=== PATIENT | female | born 1955 | race Caucasian/White ===

== ENCOUNTER → 2016-08-19 | Outpatient (CLI) | payer MEDICAID | LOC: RAD 10:17 | PROVIDERS: ATTEND Physician Assistant | DX: L03.90 Cellulitis, unspecified (principal) | CPT/HCPCS: 78315; A9503; Q9969 ==

== ENCOUNTER → 2016-09-02 | Outpatient (CLI) | payer MEDICAID | LOC: RAD 07:28 | PROVIDERS: ATTEND Physician Assistant | DX: M79.672 Pain in left foot (principal) | CPT/HCPCS: 73720; A9576 ==

== ENCOUNTER → 2016-09-18 | Outpatient (CLI) | payer MEDICAID | LOC: WI 12:51 | PROVIDERS: ATTEND Physician Assistant | DX: N95.9 Unspecified menopausal and perimenopausal disorder (principal); M85.88 Other specified disorders of bone density and structure, other site | CPT/HCPCS: 77080 ==

== ENCOUNTER 2016-11-15 11:07 | Emergency (ER) | payer MEDICAID ==
[2016-11-15] MEDS ORDERED: MORPHINE SULFATE 10 MG/ML INJ IM ONE (11:20)
[2016-11-15] MEDS ORDERED: ONDANSETRON 4 MG TAB.RAPDIS PO ONE (11:20)
--- NOTE | 2016-11-15 11:20 | ER Document Report ---
ED Medical Screen (RME) - General Chief Complaint: Wrist Injury Stated Complaint: FALL/RIGHT WRIST INJURY TRAVEL OUTSIDE OF THE [place] IN LAST 30 DAYS: No - HPI Notes: 11/15/16 11:19 Right wrist deformity no loss of consciousness no tenderness of the elbow or shoulder - Related Data Allergies/Adverse Reactions: lisinopril [Lisinopril] Allergy (Intermediate, Verified 11/15/16 11:12) rash, hives Past Medical History - Past Medical History Cardiac Medical History: Reports: Hx Hypercholesterolemia, Hx Hypertension - MEDICATED Denies: Hx Coronary Artery Disease, Hx Heart Attack Pulmonary Medical History: Reports: Hx COPD Denies: Hx Asthma, Hx Bronchitis, Hx Pneumonia Neurological Medical History: Denies: Hx Cerebrovascular Accident, Hx Seizures Renal/ Medical History: Denies: Hx Peritoneal Dialysis GI Medical History: Denies: Hx Hepatitis, Hx Hiatal Hernia, Hx Ulcer Musculoskeltal Medical History: Reports Hx Arthritis Psychiatric Medical History: Reports: Hx Depression Traumatic Medical History: Reports: Hx Fractures Infectious Medical History: Denies: Hx Hepatitis Past Surgical History: Reports: Hx Section - x1, Hx Orthopedic Surgery - L hip replacement. Denies: Hx Hysterectomy, Hx Mastectomy, Hx Open Heart Surgery, Hx Pacemaker - Immunizations Hx Diphtheria, Pertussis, Tetanus Vaccination: No Review of Systems - Review of Systems Musculoskeletal: Other - Wrist deformity Physical Exam - Vital signs Vitals: Temp Pulse Resp BP Pulse Ox 98.4 F 90 18 139/73 H 97 11/15/16 11:11 11/15/16 11:11 11/15/16 11:11 11/15/16 11:11 11/15/16 11:11 - Extremities General upper extremity: Normal inspection - Deformity of the right wrist Course - Vital Signs Vital signs: Temp Pulse Resp BP Pulse Ox 98.4 F 90 18 139/73 H 97 11/15/16 11:11 11/15/16 11:11 11/15/16 11:11 11/15/16 11:11 11/15/16 11:11
--- NOTE | 2016-11-15 11:27 | ER Document Report ---
ED Hand/Wrist Injury - General Time seen by provider: 11:27 Mode of Arrival: Wheelchair Information source: Patient TRAVEL OUTSIDE OF THE [place] IN LAST 30 DAYS: No - HPI Injury to: Wrist - right Onset: Just prior to arrival - see HPI note Where: Outdoors - bench Severity: Moderate Context: Fall - General Chief Complaint: Wrist Injury Stated Complaint: FALL/RIGHT WRIST INJURY Notes: Patient is a 61 year old female presenting to the emergency department for right wrist deformity related to a recent fall. Patient injured her wrist just prior to arrival. Patient states that she was going to sit down on a bench and she missed and fell to her right side with her right arm outstretched to catch herself. Patient states she fell on concrete. Patient has an obvious deformity to her right wrist but is able to move all her fingers and has no pain to her elbow or shoulder. Patient denies any loss of consciousness. Patient got her rings off her hand except one on her right ring finger. Patient did not take any medications prior to arrival and drove herself to the emergency department; patient states she does have a ride home. Patient's orthopedic physicians is at [facility]. Patient has chronic back pain and states that she is out of her 10mg percocet. Patient is allergic to lisinopril. (MOUNIKA VILLAFUERTE) - Related Data Allergies/Adverse Reactions: lisinopril [Lisinopril] Allergy (Intermediate, Verified 11/15/16 11:12) rash, hives Past Medical History - General Information source: Patient - Social History Smoking Status: Former Smoker Family History: None Patient has suicidal ideation: No Patient has homicidal ideation: No - Past Medical History Cardiac Medical History: Reports: Hx Hypercholesterolemia, Hx Hypertension - MEDICATED Pulmonary Medical History: Reports: Hx COPD Musculoskeltal Medical History: Reports Hx Arthritis Psychiatric Medical History: Reports: Hx Depression Traumatic Medical History: Reports: Hx Fractures Past Surgical History: Reports: Hx Section - x1, Hx Orthopedic Surgery - L hip replacement - Immunizations Hx Diphtheria, Pertussis, Tetanus Vaccination: No Hx Pneumococcal Vaccination: 08/10/14 Review of Systems - Review of Systems Constitutional: No symptoms reported EENT: No symptoms reported Cardiovascular: No symptoms reported Respiratory: No symptoms reported Gastrointestinal: No symptoms reported Genitourinary: No symptoms reported Female Genitourinary: No symptoms reported Musculoskeletal: See HPI Skin: No symptoms reported Hematologic/Lymphatic: No symptoms reported Neurological/Psychological: No symptoms reported -: Yes All other systems reviewed and negative Physical Exam - Vital signs Interpretation: Normal - Vital signs Vitals: Temp Pulse Resp BP Pulse Ox 98.4 F 90 18 139/73 H 97 11/15/16 11:11 11/15/16 11:11 11/15/16 11:11 11/15/16 11:11 11/15/16 11:11 - Notes Notes: GENERAL: Well-appearing, well-nourished, mild distress. HEAD: Atraumatic, normocephalic. EYES: Pupils equal round and reactive to light, extraocular movements intact, sclera anicteric, conjunctiva are normal. ENT: Nares patent. Moist mucous membranes. Patent airway. NECK: Normal range of motion, supple without lymphadenopathy. LUNGS: Coarse breath sounds bilaterally. No wheezes, rales, or rhonchi. HEART: Regular rate and rhythm without murmurs. ABDOMEN: Soft, non-tender. No guarding, no rebound. No masses appreciated. EXTREMITIES: Right wrist has an obvious fracture of the distal ulna radius with tenderness, no tenderness with palpation to the right elbow or shoulder, able to move all fingers on the right hand. NEUROLOGICAL: No focal neurological deficits. Normal sensation. PSYCH: Normal affect. Normal mood. SKIN: Warm, Dry, normal turgor, no rashes or lesions noted. Capillary refill is < 2 seconds. (MOUNIKA VILLAFUERTE) Procedures - Immobilization Right Wrist Time completed: 12:20 Pre-Proc Neuro Vasc Exam: Normal Immobilizer type: Sugar tong Performed by: PCT Post-Proc Neuro Vasc Exam: Normal Alignment checked and good: Yes - Checked by provider at 12:25 Discharge - Discharge Clinical Impression: Colles' fracture of right radius, initial encounter for closed fracture, Ulna distal fracture Condition: Good Disposition: HOME, SELF-CARE Instructions: Fractured Radius and Ulna ([facility]) Prescriptions: Hydrocodone/Acetaminophen [[place] 10-325 mg Tablet] 1 tab PO Q6HP PRN #20 tablet PRN Reason: For Pain Referrals: [facility] [Provider Group] - Follow up in 3-5 days Scribe Documentation - Scribe Written by Scribe:: Mounika Villafuerte 11/15/16 11:55 acting as scribe for :: Bettina
[2016-11-15 12:34] VITALS: BP 140/83
== END 2016-11-15 12:34 | disposition home or self-care (01) ==
LOC: ER 11:07
PROC: 2W3CX1Z Immobilization of Right Lower Arm using Splint (ICD-10-PCS; principal; 2016-11-15)
DX: S52.531A Colles' fracture of right radius, initial encounter for closed fracture (principal); S52.601A Unspecified fracture of lower end of right ulna, initial encounter for closed fracture; W07.XXXA Fall from chair, initial encounter; Z87.891 Personal history of nicotine dependence
CPT/HCPCS: 99283; 96372; 73110; 29125; S0119; J2270

== ENCOUNTER → 2016-11-19 | Outpatient (CLI) | payer MEDICAID ==
[2016-11-19 13:59] LABS: ABSOLUTE EOSINOPHILS # (AUTO) 0.2 10^3/uL (0.0-0.6); ABSOLUTE LYMPHOCYTES (AUTO) 2.8 10^3/uL (0.5-4.7); ABSOLUTE MONOCYTES (AUTO) 0.9 10^3/uL (0.1-1.4); ABSOLUTE NEUT (AUTO) 5.8 10^3/uL (1.7-8.2); BASOPHILS % (AUTO) 0.2 % (0-2); EOSINOPHILS % (AUTO) 2.5 % (0-6); HEMATOCRIT 33.2 % (36.0-47.0); HEMOGLOBIN 11.5 g/dL (12.0-15.5); HGB HCT DIFFERENCE 1.3; LYMPHOCYTES % (AUTO) 28.5 % (13-45); MEAN CORPUSCULAR HEMOGLOBIN 32.7 pg (27.0-33.4); MEAN CORPUSCULAR HGB CONC 34.6 g/dL (32.0-36.0); MEAN CORPUSCULAR VOLUME 95 fl (80-97); MONOCYTES % (AUTO) 9.5 % (3-13); RED BLOOD COUNT 3.52 10^6/uL (3.72-5.28); RED CELL DISTRIBUTION WIDTH 14.7 % (11.5-14.0); SEGMENTED NEUTROPHILS % (AUTO) 59.3 % (42-78); WHITE BLOOD COUNT 9.8 10^3/uL (4.0-10.5)
[2016-11-19 14:16] LABS: ALANINE AMINOTRANSFERASE 23 U/L (9-52); ALBUMIN 3.7 g/dL (3.5-5.0); ALKALINE PHOSPHATASE 83 U/L (38-126); ANION GAP 10 (5-19); ASPARTATE AMINO TRANSFERASE 15 U/L (14-36); BILIRUBIN,DIRECT 0.3 mg/dL (0.0-0.4); BILIRUBIN,TOTAL 0.7 mg/dL (0.2-1.3); BLOOD UREA NITROGEN 12 mg/dL (7-20); CALCIUM 9.2 mg/dL (8.4-10.2); CARBON DIOXIDE 26 mmol/L (22-30); CHLORIDE 106 mmol/L (98-107); CREATININE RESULT 0.71 mg/dL (0.52-1.25); GLUCOSE 89 mg/dL (75-110); SODIUM 141.6 mmol/L (137-145); TOTAL PROTEIN 6.2 g/dL (6.3-8.2)
--- NOTE | 2016-11-19 14:19 | EKG REPORT ---
SEVERITY:- NORMAL ECG - SINUS RHYTHM : Confirmed by: Yovani Palacios MD 19-Nov-2016 14:17:43
== END ==
LOC: OD 12:54
PROVIDERS: ATTEND Orthopaedic Surgery
DX: Z11.2 Encounter for screening for other bacterial diseases (principal); I10 Essential (primary) hypertension
CPT/HCPCS: 36415; 80053; 85025; 87070; 93005; 93010

== ENCOUNTER → 2016-11-26 | Outpatient (CLI) | payer MEDICAID ==
[2016-12-01 10:37] LABS: HEPATITIS C QUANTITATION HCV Not Detected IU/mL (.)
== END ==
LOC: OD 14:25
PROVIDERS: ATTEND Orthopaedic Surgery
DX: B19.20 Unspecified viral hepatitis C without hepatic coma (principal)
CPT/HCPCS: 36415; 87522

== ENCOUNTER → 2017-02-18 | Outpatient (CLI) | payer MEDICAID ==
--- NOTE | 2017-02-18 16:42 | WOMENS IMAGING REPORT ---
EXAM DESCRIPTION: BILAT SCREENING MAMMO W/CAD COMPLETED DATE/TIME: 02/18/2017 2:57 pm REASON FOR STUDY: ROUTINE SCREENING; Z12.31 Z12.31 ENCNTR SCREEN MAMMOGRAM FOR MALIGNANT NEOPLASM O F TOSHIA COMPARISON: Multiple since 2009 TECHNIQUE: Standard craniocaudal and mediolateral oblique views of each breast recorded using [employer] acquisition. LIMITATIONS: None. FINDINGS: Findings present which are benign by mammographic criteria. No suspicious masses, calcifi cations or architectural distortion. Pertinent benign findings: Few scattered benign calcifications. Implanted left program planner devic e Read with the assistance of CAD. .[facility] - R2 Cenova Version 1.3 .[facility] Imaging - R2 Cenova Version 1.3 .[facility] Imaging - R2 Cenova Version 2.4 .[facility] [place] R2 Cenova Version 2.4 .[facility] - R2 Clay Press Operator Version 9.2 Benign mammographic findings may include one or more of the following: Smooth masses, popcorn/rim/co arse calcifications, asymmetries, post-procedure changes, and lesions with long-standing stability. IMPRESSION: BENIGN MAMMOGRAPHIC FINDINGS. BIRADS 2 BREAST DENSITY: c. The breasts are heterogeneously dense, which may obscure small masses. BIRAD: 2 BENIGN FINDING(S) RECOMMENDATION: ROUTINE SCREENING Please consider bilateral screening tomosynthesis in February 2018 given heterogeneously dense tissue COMMENT: The patient has been notified of the results by letter per SA requirements. Additional no tification policies are in place for contacting patient with suspicious or incomplete findings. Quality ID #[id number]: The [employer] recommends an annual screening mammogram for women aged 40 years or over. This facility utilizes a reminder system to ensure that all patients receive reminder letters, and/or direct phone calls for appointments. This includes reminders for routine scr eening mammograms, diagnostic mammograms, or other Breast Imaging Interventions when appropriate. Th is patient will be placed in the appropriate reminder system. The [employer] (ACR) has developed recommendations for screening MRI of the breast s in certain patient populations, to be used in conjunction with mammography. Breast MRI surveillanc e may be appropriate for women with more than 20% lifetime risk of developing breast cancer as deter mined by genetic testing, significant family history of the disease, or history of mantle radiation f or Hodgkins Disease. ACR Practice Guidelines 2008. TECHNICAL DOCUMENTATION: FINDING NUMBER: (1) ASSESSMENT: (1) JOB ID: [id number] [employer]- All Rights Reserved
== END ==
LOC: WI 11:35
PROVIDERS: ATTEND Family Medicine
DX: Z12.31 Encounter for screening mammogram for malignant neoplasm of breast (principal)
CPT/HCPCS: 77067; G0202

== ENCOUNTER → 2017-05-11 | Outpatient (CLI) | payer MEDICAID ==
--- NOTE | 2017-05-11 10:42 | RADIOLOGY REPORT (SQ) ---
EXAM DESCRIPTION: MRI THORACIC SPINE WITHOUT COMPLETED DATE/TIME: 05/11/2017 10:18 am REASON FOR STUDY: WEDGE COMPRESSION FX OF UNSPEC THORACIC VERTEBRA (S22.000A) S22.000A WEDGE COMPR ESSION FRACTURE OF UNSP THORACIC VERTEBR COMPARISON: None. TECHNIQUE: Sagittal and Axial imaging includes T1, T2, STIR and gradient echo sequences. LIMITATIONS: Motion. FINDINGS: LOCALIZER: No worrisome findings. ALIGNMENT: Normal. VERTEBRAE: Depression of the superior endplates of T11 and T12 with approximately 50% height loss at T12 and 40% at T11. Minimal retropulsion. BONE MARROW: Increased T2 signal associated with superior endplates of T11 and T12. Edema extends in to the left T11 pedicle. HARDWARE: None in the spine. CORD: Normal in size and signal intensity. SOFT TISSUES: No soft tissue masses. THORACIC DISCS T1-T12: Mild spinal stenosis associated with disc bulge and retropulsion T10-11. LOWER CERVICAL: Incompletely imaged. No significant spinal stenosis UPPER LUMBAR: Incompletely imaged. No significant spinal stenosis OTHER: No other significant finding. IMPRESSION: Recent compression fractures superior endplate T11 and T12. TECHNICAL DOCUMENTATION: JOB ID: [id number] [employer]- All Rights Reserved
== END ==
LOC: RAD 09:25
PROVIDERS: ATTEND Physician Assistant
DX: S22.000A Wedge compression fracture of unspecified thoracic vertebra, initial encounter for closed fracture (principal); X58.XXXA Exposure to other specified factors, initial encounter; Y93.9 Activity, unspecified; Y92.9 Unspecified place or not applicable; Y99.9 Unspecified external cause status
CPT/HCPCS: 72146

== ENCOUNTER → 2017-05-25 | Outpatient (CLI) | payer MEDICAID ==
--- NOTE | 2017-05-25 12:24 | WOMENS IMAGING REPORT ---
EXAM DESCRIPTION: BONE DENSITY HIP/SPINE COMPLETED DATE/TIME: 05/25/2017 9:06 am REASON FOR STUDY: UNSPECIFIED MENOPAUSAL N95.9 N95.9 UNSPECIFIED MENOPAUSAL AND PERIMENOPAUSAL DISO RDER COMPARISON: 09/18/2016 02/18/2016 TECHNIQUE: Dual-Energy X-ray Absorptiometry (DEXA) of the AP Spine and Hip. LIMITATIONS: None. FINDINGS: LUMBAR SPINE: The bone mineral density (BMD) measured from L1-L4 in the AP projection correlates with a T-score of -1.0, which is osteopenia as defined by the World Health Organization. HIP: The bone mineral density (BMD) measured in the left hip correlates with a T-score of -3.6 in the femo ral neck, which is osteoporosis as defined by the World Health Organization. IMPRESSION: 1. LUMBAR SPINE: OSTEOPENIA. 2. HIP: OSTEOPOROSIS. COMMENT: The World Health Organization defines low BMD as follows: T-score: Normal: Greater than -1.0 Osteopenia: Between -1.0 and -2.5 Osteoporosis: Less than -2.5 without fractures Established osteoporosis: Less than -2.5 with fractures In general, you may wish to consider: Diagnosis Treatment Follow-up DEXA Normal BMD Prevention 2-3 years Osteopenia Prevention/Therapy 1-2 years Osteoporosis Therapy Yearly TECHNICAL DOCUMENTATION: JOB ID: [id number]- All Rights Reserved
== END ==
LOC: WI 08:30
PROVIDERS: ATTEND Physician Assistant
DX: N95.9 Unspecified menopausal and perimenopausal disorder (principal); M81.8 Other osteoporosis without current pathological fracture
CPT/HCPCS: 77080

== ENCOUNTER → 2017-06-22 | Outpatient (CLI) | payer MEDICAID ==
--- NOTE | 2017-06-22 13:12 | RADIOLOGY REPORT (SQ) ---
EXAM DESCRIPTION: MRI LUMBAR SPINE WITHOUT COMPLETED DATE/TIME: 06/22/2017 11:04 am REASON FOR STUDY: OTHER INTERVERTEBRAL DISC DEGENERATION, LUMBAR REGION (M51.36) M51.36 OTHER INTER VERTEBRAL DISC DEGENERATION, LUMBAR REGION COMPARISON: 03/14/2015 TECHNIQUE: Sagittal and Axial imaging includes T1, T2, STIR and gradient echo sequences. Coronal T2/ HASTE imaging. LIMITATIONS: None. FINDINGS: VISUALIZED UPPER ABDOMEN: Limited evaluation. No acute or suspicious findings suggested. SEGMENTATION: No transitional anatomy. The lowest well-developed disc space is labeled L5-S1. ALIGNMENT: Mild scoliosis. VERTEBRAE: Intact. See recent MRI thoracic spine report for findings in the thoracic spine. BONE MARROW: Normal. No marrow replacement or reactive changes. DISC SIGNAL: Desiccation multiple levels. POSTERIOR ELEMENTS: Intact. HARDWARE: None in the spine. CORD AND CONUS: Normal in size and signal intensity. Conus at the appropriate level. SOFT TISSUES: No aortic aneurysm seen. No bulky retroperitoneal adenopathy or mass. No paraspinal mas s or fluid. L1-L2: No significant spinal stenosis or exit foraminal stenosis. L2-L3: Flattening of the ventral margin of thecal sac due to disc bulge. L3-L4: Lateral recess stenosis and mild -moderate spinal stenosis due to disc osteophyte complex and facet arthropathy. L4-L5: Disc bulge and facet arthropathy. Mild narrowing of the left neural foramen. L5-S1: Disc bulge and facet arthropathy. Mild neural foraminal narrowing, right greater than left. LOWER THORACIC: See recent MRI thoracic spine report for findings in the thoracic spine. SACRUM: Visualized upper sacrum intact. OTHER: No other significant findings. IMPRESSION: Spondylosis and facet arthropathy. Lateral recess stenosis and mild -moderate spinal st enosis L3-4. No significant change. TECHNICAL DOCUMENTATION: JOB ID: [id number] [employer]- All Rights Reserved
== END ==
LOC: RAD 09:56
PROVIDERS: ATTEND Physician Assistant
DX: M51.36 Other intervertebral disc degeneration, lumbar region (principal)
CPT/HCPCS: 72148

== ENCOUNTER → 2017-09-17 | Outpatient (CLI) | payer MEDICAID ==
[2017-09-17 13:03] LABS: ABSOLUTE BASOPHILS # (AUTO) 0.1 10^3/uL (0.0-0.2); ABSOLUTE EOSINOPHILS # (AUTO) 0.3 10^3/uL (0.0-0.6); ABSOLUTE LYMPHOCYTES (AUTO) 3.1 10^3/uL (0.5-4.7); ABSOLUTE MONOCYTES (AUTO) 0.7 10^3/uL (0.1-1.4); ABSOLUTE NEUT (AUTO) 4.7 10^3/uL (1.7-8.2); BASOPHILS % (AUTO) 0.6 % (0-2); EOSINOPHILS % (AUTO) 3.4 % (0-6); HEMATOCRIT 39.2 % (36.0-47.0); LYMPHOCYTES % (AUTO) 35.2 % (13-45); MEAN CORPUSCULAR HEMOGLOBIN 31.4 pg (27.0-33.4); MEAN CORPUSCULAR HGB CONC 33.3 g/dL (32.0-36.0); MEAN CORPUSCULAR VOLUME 94 fl (80-97); MONOCYTES % (AUTO) 8.2 % (3-13); PLATELET COUNT 197 10^3/uL (150-450); RED BLOOD COUNT 4.15 10^6/uL (3.72-5.28); RED CELL DISTRIBUTION WIDTH 14.7 % (11.5-14.0); SEGMENTED NEUTROPHILS % (AUTO) 52.6 % (42-78); TOTAL CELLS COUNTED % (AUTO) 100 %; WHITE BLOOD COUNT 8.9 10^3/uL (4.0-10.5)
[2017-09-17 13:35] LABS: ALANINE AMINOTRANSFERASE 50 U/L (9-52); ALKALINE PHOSPHATASE 76 U/L (38-126); ANION GAP 9 (5-19); ASPARTATE AMINO TRANSFERASE 24 U/L (14-36); BILIRUBIN,DIRECT 0.5 mg/dL (0.0-0.4); BILIRUBIN,TOTAL 0.7 mg/dL (0.2-1.3); BLOOD UREA NITROGEN 13 mg/dL (7-20); CALCIUM 10.7 mg/dL (8.4-10.2); CARBON DIOXIDE 28 mmol/L (22-30); CHLORIDE 103 mmol/L (98-107); GLUCOSE 78 mg/dL (75-110); POTASSIUM 4.2 mmol/L (3.6-5.0); SODIUM 139.6 mmol/L (137-145); TOTAL PROTEIN 6.7 g/dL (6.3-8.2)
== END ==
LOC: OD 11:46
PROVIDERS: ATTEND Physician Assistant
DX: Z11.2 Encounter for screening for other bacterial diseases (principal); I10 Essential (primary) hypertension
CPT/HCPCS: 36415; 80053; 85025; 87070

== ENCOUNTER → 2018-06-17 | Outpatient (CLI) | payer MEDICAID ==
--- NOTE | 2018-06-17 18:53 | WOMENS IMAGING REPORT ---
EXAM DESCRIPTION: BILAT SCREENING MAMMO W/CAD COMPLETED DATE/TIME: 06/17/2018 2:58 pm REASON FOR STUDY: BILATERAL SCREENING MAMMO /Z12.31 Z12.31 ENCNTR SCREEN MAMMOGRAM FOR MALIGNANT NE OPLASM OF TOSHIA COMPARISON: Multiple since 2009 TECHNIQUE: Standard craniocaudal and mediolateral oblique views of each breast recorded using [employer] l acquisition. LIMITATIONS: None. FINDINGS: Findings present which are benign by mammographic criteria. No suspicious masses, calcifi cations or architectural distortion. Pertinent benign findings: Benign bilateral breast parenchymal and skin calcifications. Implanted ca rdiac monitoring device over the medial left breast. Read with the assistance of CAD. .[facility] - R2 Cenova Version 1.3 .[facility] Imaging - R2 Cenova Version 1.3 .[facility] Imaging - R2 Cenova Version 2.4 .[facility] - R2 Cenova Version 2.4 .[facility] - R2 Call Out Operator Version 9.2 Benign mammographic findings may include one or more of the following: Smooth masses, popcorn/rim/co arse calcifications, asymmetries, post-procedure changes, and lesions with long-standing stability. IMPRESSION: BENIGN MAMMOGRAPHIC FINDINGS. BIRADS 2 BREAST DENSITY: c. The breasts are heterogeneously dense, which may obscure small masses. BIRAD: 2 BENIGN FINDING(S) RECOMMENDATION: ROUTINE SCREENING Please continue yearly bilateral screening mammography/tomosynthesis in June 2019 COMMENT: The patient has been notified of the results by letter per MQSA requirements. Additional no tification policies are in place for contacting patient with suspicious or incomplete findings. Quality ID #[id number]: The [employer] recommends an annual screening mammogram for women aged 40 years or over. This facility utilizes a reminder system to ensure that all patients receive reminder letters, and/or direct phone calls for appointments. This includes reminders for routine scr eening mammograms, diagnostic mammograms, or other Breast Imaging Interventions when appropriate. Th is patient will be placed in the appropriate reminder system. The [employer] (ACR) has developed recommendations for screening MRI of the breast s in certain patient populations, to be used in conjunction with mammography. Breast MRI surveillanc e may be appropriate for women with more than 20% lifetime risk of developing breast cancer as deter mined by genetic testing, significant family history of the disease, or history of mantle radiation f or Hodgkins Disease. ACR Practice Guidelines 2008. TECHNICAL DOCUMENTATION: FINDING NUMBER: (1) ASSESSMENT: (1) JOB ID: [id number] [employer]- All Rights Reserved Reading location - IP/workstation name: [facility]-2
== END ==
LOC: WI 14:41
PROVIDERS: ATTEND Family Medicine
DX: Z12.31 Encounter for screening mammogram for malignant neoplasm of breast (principal)
CPT/HCPCS: 77067

== ENCOUNTER 2018-08-12 10:58 | Emergency (ER) | payer MEDICAID ==
[2018-08-12] MEDS ORDERED: HYDROMORPHONE HCL INJ/PF 2 MG/ML AMPULE IV ONE (11:14)
[2018-08-12] MEDS ORDERED: ONDANSETRON HCL INJ/PF 4 MG/2 ML SDV IV ONE (11:14)
[2018-08-12 11:48] LABS: ABSOLUTE BASOPHILS # (AUTO) 0.1 10^3/uL (0.0-0.2); ABSOLUTE EOSINOPHILS # (AUTO) 0.1 10^3/uL (0.0-0.6); ABSOLUTE LYMPHOCYTES (AUTO) 1.9 10^3/uL (0.5-4.7); ABSOLUTE MONOCYTES (AUTO) 0.8 10^3/uL (0.1-1.4); ABSOLUTE NEUT (AUTO) 9.1 10^3/uL (1.7-8.2); BASOPHILS % (AUTO) 0.5 % (0-2); EOSINOPHILS % (AUTO) 0.8 % (0-6); HEMOGLOBIN 12.1 g/dL (12.0-15.5); MEAN CORPUSCULAR HEMOGLOBIN 31.3 pg (27.0-33.4); MEAN CORPUSCULAR HGB CONC 33.7 g/dL (32.0-36.0); MEAN CORPUSCULAR VOLUME 93 fl (80-97); MONOCYTES % (AUTO) 6.7 % (3-13); PLATELET COUNT 255 10^3/uL (150-450); RED BLOOD COUNT 3.87 10^6/uL (3.72-5.28); RED CELL DISTRIBUTION WIDTH 14.4 % (11.5-14.0); TOTAL CELLS COUNTED % (AUTO) 100 %; WHITE BLOOD COUNT 11.9 10^3/uL (4.0-10.5)
[2018-08-12 12:07] LABS: ALANINE AMINOTRANSFERASE 20 U/L (9-52); ALBUMIN 3.6 g/dL (3.5-5.0); ALKALINE PHOSPHATASE 92 U/L (38-126); ANION GAP 7 (5-19); ASPARTATE AMINO TRANSFERASE 20 U/L (14-36); BILIRUBIN,DIRECT 0.2 mg/dL (0.0-0.4); BILIRUBIN,TOTAL 0.5 mg/dL (0.2-1.3); BLOOD UREA NITROGEN 12 mg/dL (7-20); CALCIUM 9.3 mg/dL (8.4-10.2); CARBON DIOXIDE 24 mmol/L (22-30); CHLORIDE 107 mmol/L (98-107); GLUCOSE 87 mg/dL (75-110); POTASSIUM 4.4 mmol/L (3.6-5.0); TOTAL PROTEIN 6.2 g/dL (6.3-8.2)
--- NOTE | 2018-08-12 12:11 | RADIOLOGY REPORT (SQ) ---
EXAM DESCRIPTION: TOE LEFT COMPLETED DATE/TIME: 08/12/2018 12:00 pm REASON FOR STUDY: left great toe pain, injury COMPARISON: None. NUMBER OF VIEWS: Two views. TECHNIQUE: AP and lateral images acquired of the left first toe. LIMITATIONS: None. FINDINGS: MINERALIZATION: Osteopenic BONES: Acute spiral nondisplaced fracture left great toe proximal phalanx mid diaphysis. This is mar ked with arrows. JOINTS: No effusions. SOFT TISSUES: Medial forefoot soft tissue swelling. No foreign body. OTHER: No other significant finding. IMPRESSION: Acute spiral nondisplaced fracture left great toe proximal phalanx mid diaphysis. COMMENT: SITE OF TRAUMA/COMPLAINT MARKED/STAMP COMPLETED: YES. TECHNICAL DOCUMENTATION: JOB ID: [id number] [employer]- All Rights Reserved Reading location - IP/workstation name: [email or web address]
--- NOTE | 2018-08-12 12:12 | RADIOLOGY REPORT (SQ) ---
EXAM DESCRIPTION: CHEST SINGLE VIEW COMPLETED DATE/TIME: 08/12/2018 12:00 pm REASON FOR STUDY: hip injury, pre-op COMPARISON: Chest films 03/30/2013, 05/28/2011 EXAM PARAMETERS: NUMBER OF VIEWS: One view. TECHNIQUE: Single frontal radiographic view of the chest acquired. RADIATION DOSE: NA LIMITATIONS: None. FINDINGS: LUNGS AND PLEURA: No opacities, masses or pneumothorax. No pleural effusion. MEDIASTINUM AND HILAR STRUCTURES: No masses. Contour normal. HEART AND VASCULAR STRUCTURES: Heart normal in size. Normal vasculature. BONES: Old healed bilateral rib fractures HARDWARE: None in the chest. OTHER: No other significant finding. IMPRESSION: NO ACUTE RADIOGRAPHIC FINDING IN THE CHEST. TECHNICAL DOCUMENTATION: JOB ID: [id number] [employer]- All Rights Reserved Reading location - IP/workstation name: [email or web address]
--- NOTE | 2018-08-12 12:18 | RADIOLOGY REPORT (SQ) ---
EXAM DESCRIPTION: HIP LEFT AP/LATERAL COMPLETED DATE/TIME: 08/12/2018 12:00 pm REASON FOR STUDY: left hip pain, injury COMPARISON: Left hip films 01/13/2014, 04/01/2013 NUMBER OF VIEWS: Two views. TECHNIQUE: AP pelvis and additional frog-leg view of the left hip. LIMITATIONS: None. FINDINGS: MINERALIZATION: Osteoporotic LEFT HIP: Old left total hip replacement. Question superimposed acute fracture over the greater troc hanter. Consider CT for followup. RIGHT HIP: No fracture or dislocation. No worrisome bone lesions. PUBIS AND ISCHIUM: No fracture. PELVIS: No fracture. SACRUM: No fracture or dislocation. No worrisome bone lesions. SOFT TISSUES: No findings. OTHER: No other significant finding. IMPRESSION: Old left total hip replacement. Question superimposed acute fracture over the left hip greater trochanter. Consider CT for followup TECHNICAL DOCUMENTATION: JOB ID: [id number] [employer]- All Rights Reserved Reading location - IP/workstation name: [email or web address]
--- NOTE | 2018-08-12 12:22 | ER Document Report ---
ED General - General Chief Complaint: Fall Injury Stated Complaint: HIP PAIN Time Seen by Provider: 08/12/18 11:06 Notes: Patient is a 63-year-old female with history of hip fracture on the left that presents to the emergency department for chief complaint of fall and left hip pain. Patient states that she was walking last night to go to the bathroom, and tripped, and fell, landed on her left side, she also injured her left great toe from this, she was able to crawl to get herself back into bed, but has not been up to move, she eventually called EMS to bring himself to the emergency department. She currently rates her pain as a 10 out of 10, described as a constant, throbbing pain she did receive 100 mcg of fentanyl by EMS and 1 mg of IV Dilaudid. She currently denies having any associated numbness, weakness or tingling that is new. She states she chronically has decreased sensation to her left foot from a prior surgical adverse outcome. On that hip she does have a total hip arthroplasty, with cerclage wires. Past Medical History: Osteoarthritis, hypertension, hyperlipidemia, anxiety, depression Past Surgical History: Left partial hip arthroplasty, then switched and converted to left total hip arthroplasty, ORIF of the left femur. Social History: Positive for smoking cigarettes, denies alcohol or drug use. Family History: Reviewed and noncontributory for presenting illness Allergies: Reviewed, see documented allergy list. REVIEW OF SYSTEMS: Other than noted above, the 12 point review of systems was reviewed with the patient and were negative, all pertinent findings are included in the HPI. PHYSICAL EXAMINATION: Vital signs reviewed, nursing noted reviewed. GENERAL: Patient appears uncomfortable, and in pain HEAD: Atraumatic, normocephalic. EYES: Eyes appear normal, extraocular movements intact, sclera anicteric, conjunctiva are normal. ENT: nares patent, oropharynx clear without exudates. Moist mucous membranes. NECK: Normal range of motion, supple without lymphadenopathy, no midline tenderness LUNGS: Breath sounds clear to auscultation bilaterally and equal. No wheezes rales or rhonchi. HEART: Regular rate and rhythm without murmurs ABDOMEN: Soft, nontender, normoactive bowel sounds. No rebound, guarding, or rigidity. No masses appreciated. EXTREMITIES: Pain with hip flexion on the left, tenderness to palpation over the left greater trochanter, no ecchymosis noted over the lateral hip, pelvis is stable, there is pain with flexion of the hip on the left, and positive logrolling on the left, negative on the right. No leg shortening or obvious deformity noted. The left great toe was ecchymotic, and nontender, however the patient has a history of dropfoot and paralysis to that foot, and does not have sensation. Cap refill is less than 3 seconds in all toes, no other gross deformities or injuries noted. NEUROLOGICAL: Chronic drop foot on the left, with lack of sensation distal to the ankle, chronic for this patient and unchanged, no new focal neurological deficits. Moves all extremities spontaneously Motor and sensory grossly intact on exam. PSYCH: Normal mood, normal affect. SKIN: Warm, Dry, normal turgor, no rashes or lesions noted on exposed skin TRAVEL OUTSIDE OF THE [place] IN LAST 30 DAYS: No - Related Data Allergies/Adverse Reactions: lisinopril [Lisinopril] Allergy (Intermediate, Verified 11/15/16 11:12) rash, hives Past Medical History - Social History Smoking Status: Former Smoker Frequency of alcohol use: None Drug Abuse: None Family History: None, Reviewed & Not Pertinent Patient has suicidal ideation: No Patient has homicidal ideation: No - Past Medical History Cardiac Medical History: Reports: Hx Hypercholesterolemia, Hx Hypertension - [place] DICATED Denies: Hx Coronary Artery Disease, Hx Heart Attack Pulmonary Medical History: Reports: Hx COPD Denies: Hx Asthma, Hx Bronchitis, Hx Pneumonia Neurological Medical History: Denies: Hx Cerebrovascular Accident, Hx Seizures Renal/ Medical History: Denies: Hx Peritoneal Dialysis GI Medical History: Denies: Hx Hepatitis, Hx Hiatal Hernia, Hx Ulcer Musculoskeletal Medical History: Reports Hx Arthritis Psychiatric Medical History: Reports: Hx Depression Traumatic Medical History: Reports: Hx Fractures Infectious Medical History: Denies: Hx Hepatitis Past Surgical History: Reports: Hx Section - x1, Hx Orthopedic Surgery - L hip replacement. Denies: Hx Hysterectomy, Hx Mastectomy, Hx Open Heart Surgery, Hx Pacemaker - Immunizations Hx Diphtheria, Pertussis, Tetanus Vaccination: No Hx Pneumococcal Vaccination: 08/10/14 Physical Exam - Vital signs Vitals: Resp BP Pulse Ox 14 127/100 H 95 08/12/18 11:07 08/12/18 11:07 08/12/18 11:07 Course - Re-evaluation Re-evalutation: Patient seen and examined vital signs reviewed. Laboratory data and imaging were ordered as appropriate for the patient's presenting symptoms and complaint, with consideration of any critical or life threatening conditions that may be associated with their obtained history and exam as noted above. Patient was treated with IV fentanyl, and IV Dilaudid by EMS, however patient was still having pain upon my assessment, patient was given additional 1 mg of I V Dilaudid, which did seem to improve her pain for some period of time. X-rays were ordered of the hip and her toe, these x-rays demonstrated an acute fracture of the greater trochanter of the left hip, without disruption of the patient's intact left total hip arthroplasty, also noted was a spiral fracture of the left first proximal phalanx of the great toe, that is nondisplaced. Blood work was obtained for the patient, presuming possible hip fracture as well, and was unremarkable,, with the exception of a mild leukocytosis, likely is secondary to acute distress reactant from her injuries. Patient was given 10 mg of oxycodone IR, to help with her pain and she was still having some on my r eevaluation. I explained the patient the results, and that these injuries do not require immediate surgery, she was placed in a postop shoe for her toe fracture, and advised partial weightbearing on the left leg, with a walker. I did place a call to the orthopedic surgeon, twice, did not get response, however I am rather familiar with these fractures, and as it is a nonweightbearing injury to the greater trochanter, and her toe fracture is nondisplaced, and not immediate operation needed, and she had cap refill distally, I felt the patient can be discharged home which she is agreeable to. She states she already has oxycodone at home from previous prescriptions, has plenty of that I advised that she could take an extra oxycodone if needed, given that she has acute injuries that would warrant additional pain medication in someone that takes chronic opiates. Patient was agreeable, she will follow-up with her primary care, she does have an orthopedic group that she follows with, and states that she will call them as well. Evaluation was most consistent with fall, resulting in left greater trochanteric fracture, and left great toe fracture as well. Results were discussed with the patient at this point, after careful consideration I feel that that patient can be discharged from the emergency department, the patient was educated treatments and reasons to return to the emergency department based on their presumed diagnosis as noted above, they were advised to followup with a primary care physician in 2-3 days. Patient was agreeable to plan of care. *Note is created using voice recognition software and may contain spelling, syntax or grammatical errors. Laboratory 08/12/18 08/12/18 11:30 11:30 WBC 11.9 H RBC 3.87 Hgb 12.1 Hct 36.0 MCV 93 MCH 31.3 MCHC 33.7 RDW 14.4 H Plt Count 255 Seg Neutrophils % 76.0 Lymphocytes % 16.0 Monocytes % 6.7 Eosinophils % 0.8 Basophils % 0.5 Absolute Neutrophils 9.1 H Absolute Lymphocytes 1.9 Absolute Monocytes 0.8 Absolute Eosinophils 0.1 Absolute Basophils 0.1 Sodium 138.0 Potassium 4.4 Chloride 107 Carbon Dioxide 24 Anion Gap 7 BUN 12 Creatinine 0.70 Est GFR ( Amer) > 60 Est GFR (Non-Af Amer) > 60 Glucose 87 Calcium 9.3 Total Bilirubin 0.5 Direct Bilirubin 0.2 Neonat Total Bilirubin Not Reportable Neonat Direct Bilirubin Not Reportable Neonat Indirect Bili Not Reportable AST 20 ALT 20 Alkaline Phosphatase 92 Total Protein 6.2 L Albumin 3.6 Hip X-Ray 08/12/18 11:14 IMPRESSION: Old left total hip replacement. Question superimposed acute fracture over the left hip greater trochanter. Consider CT for followup Toe X-Ray 08/12/18 11:14 IMPRESSION: Acute spiral nondisplaced fracture left great toe proximal phalanx mid diaphysis. Chest X-Ray 08/12/18 11:15 IMPRESSION: NO ACUTE RADIOGRAPHIC FINDING IN THE CHEST. - Vital Signs Vital signs: Temp Pulse Resp BP Pulse Ox 17 110/66 94 08/12/18 14:01 08/12/18 14:01 08/12/18 14:01 - Laboratory Result Diagrams: 08/12/18 11:30 08/12/18 11:30 Laboratory results interpreted by me: 08/12/18 08/12/18 11:30 11:30 WBC 11.9 H RDW 14.4 H Absolute Neutrophils 9.1 H Total Protein 6.2 L Procedures - Immobilization Left Foot Pre-Proc Neuro Vasc Exam: Normal Immobilizer type: Post-op shoe Performed by: RN Post-Proc Neuro Vasc Exam: Normal Discharge - Discharge Clinical Impression: Fracture of greater trochanter of left femur Qualifiers: Encounter type: initial encounter Fracture type: closed Fracture alignment: no ndisplaced Qualified Code(s): S72.115A - Nondisplaced fracture of greater t rochanter of left femur, initial encounter for closed fracture Toe fracture, left Qualifiers: Encounter type: initial encounter Toe: great toe Fracture type: closed Phalanx: proximal Fracture alignment: nondisplaced Qualified Code(s): S92.415A - Nondisplaced fracture of proximal phalanx of left great toe, initial encounter for closed fracture Fall Qualifiers: Encounter type: initial encounter Qualified Code(s): W19.XXXA - Unspecified fall, initial encounter Condition: Stable Disposition: HOME, SELF-CARE Instructions: Fractured Toe ([facility]) Additional Instructions: Please follow-up with your orthopedic surgeon, call for an appointment, if you have worsening pain or uncontrolled pain, do not hesitate to return to the emergency department please use the walker that she have at home, to avoid further falls or further injury. Please take the oxycodone that you had previously prescribed from your primary care physician, you can take these 3 times a day, you can have 2 pills at a time if needed if your pain is worse or have breakthrough pain. Referrals: KAILA RODRIGUEZ DO [Primary Care Provider] - Follow up in 3-5 days [facility] [Provider Group] - Follow up in 3-5 days (call for appointment)
--- NOTE | 2018-08-12 13:40 | EKG REPORT ---
SEVERITY:- OTHERWISE NORMAL ECG - SINUS RHYTHM BORDERLINE LEFT AXIS DEVIATION : Confirmed by: Shanda Quezada MD 12-Aug-2018 13:39:41
[2018-08-12] MEDS ORDERED: OXYCODONE HCL IR 5 MG TABLET PO ONE (13:53)
[2018-08-12 14:17] VITALS: BP 110/66
== END 2018-08-12 15:06 | disposition home or self-care (01) ==
LOC: ER 10:58
DX: S72.115A Nondisplaced fracture of greater trochanter of left femur, initial encounter for closed fracture (principal); S92.415A Nondisplaced fracture of proximal phalanx of left great toe, initial encounter for closed fracture; M25.552 Pain in left hip; W01.0XXA Fall on same level from slipping, tripping and stumbling without subsequent striking against object, initial encounter; Y92.009 Unspecified place in unspecified non-institutional (private) residence as the place of occurrence of the external cause; I10 Essential (primary) hypertension; E78.5 Hyperlipidemia, unspecified; F41.9 Anxiety disorder, unspecified; Z96.642 Presence of left artificial hip joint; F17.210 Nicotine dependence, cigarettes, uncomplicated
CPT/HCPCS: 93005; 99284; 96374; 96375; 36415; 85025; 80053; 71045; 73502; 73660; 93010; J1170; J2405; J3490

== ENCOUNTER → 2019-01-19 | Outpatient (CLI) | payer MEDICAID ==
--- NOTE | 2019-01-19 13:50 | RADIOLOGY REPORT (SQ) ---
EXAM DESCRIPTION: CT LT UPPER EXTREMITY WITHOUT COMPLETED DATE/TIME: 01/19/2019 1:13 pm REASON FOR STUDY: S62.102P FX UNSP CARPAL BONE, LEFT WRIST, SUBS FOR FX W MALUNION S62.102P FX UNSP CARPAL BONE, LEFT WRIST, SUBS FOR FX W CÉSAR COMPARISON: None. TECHNIQUE: Axial imaging performed through the left wrist with reformatted coronal and sagittal imag ing windowed for bone and soft tissues. Images saved to PACS. 3D IMAGING: Were 3D images as MIP, SSD, or volume rendering performed at the work station? Yes. All CT scanners at this facility use dose modulation, iterative reconstruction, and/or weight based d osing when appropriate to reduce radiation dose to as low as reasonably achievable (ALARA). [facility]: Dose Right [facility]: CareDose [facility]: Dose Right [facility]: Teradose 4D [facility]: [employer] LIMITATIONS: None. RADIATION DOSE: CT Rad equipment meets quality standard of care and radiation dose reduction techniq ues were employed. CTDIvol: 4.6 mGy. DLP: 103 mGy-cm. mGy. FINDINGS: SOFT TISSUES: No obvious swelling or foreign body. BONES: No acute fracture. No dislocation. MINERALIZATION: Normal. OTHER: Degenerative joint changes seen in the distal articulations of the scaphoid. IMPRESSION: Degenerative joint disease. No fracture is appreciated. TECHNICAL DOCUMENTATION: JOB ID: [id number] Quality ID # [id number]: Final reports with documentation of one or more dose reduction techniques (e.g., Au tomated exposure control, adjustment of the mA and/or kV according to patient size, use of iterative reconstruction technique) 2010 [employer]- All Rights Reserved Reading location - IP/workstation name: [email or web address]
== END ==
LOC: RAD 12:59
PROVIDERS: ATTEND Orthopaedic Surgery Hand Surgery
DX: S62.102P Fracture of unspecified carpal bone, left wrist, subsequent encounter for fracture with malunion (principal); M19.032 Primary osteoarthritis, left wrist; X58.XXXD Exposure to other specified factors, subsequent encounter

== ENCOUNTER → 2019-07-27 | Outpatient (CLI) | payer MEDICAID ==
--- NOTE | 2019-07-28 17:34 | WOMENS IMAGING REPORT ---
EXAM DESCRIPTION: BILAT SCREENING MAMMO W/CAD COMPLETED DATE/TIME: 07/27/2019 2:34 pm REASON FOR STUDY: Z12.31 SCREENING MAMMO Z12.31 ENCNTR SCREEN MAMMOGRAM FOR MALIGNANT NEOPLASM OF B RE COMPARISON: Multiple since 2009 EXAM PARAMETERS: Standard craniocaudal and mediolateral oblique views of each breast recorded using digital acquisition. Read with the assistance of CAD. .[facility] - R2 Sales Advisory Manager Version 9.2 LIMITATIONS: None. FINDINGS: Findings present which are benign by mammographic criteria. No suspicious masses, calcifi cations or architectural distortion. Pertinent benign findings: Benign bilateral breast parenchymal and vascular calcifications. Loop rec order over the medial left breast. Benign mammographic findings may include one or more of the following: Smooth masses, popcorn/rim/co arse calcifications, asymmetries, post-procedure changes, and lesions with long-standing stability. IMPRESSION: BENIGN MAMMOGRAPHIC FINDINGS. BIRADS 2 BREAST DENSITY: c. The breasts are heterogeneously dense, which may obscure small masses. BIRAD: ASSESSMENT: 2 BENIGN FINDING(S) RECOMMENDATION: ROUTINE SCREENING Please continue yearly bilateral screening mammography/tomosynthesis in July 2020. COMMENT: The patient has been notified of the results by letter per MQSA requirements. Additional no tification policies are in place for contacting patient with suspicious or incomplete findings. Quality ID #[id number]: The [employer] recommends an annual screening mammogram for women aged 40 years or over. This facility utilizes a reminder system to ensure that all patients receive reminder letters, and/or direct phone calls for appointments. This includes reminders for routine scr eening mammograms, diagnostic mammograms, or other Breast Imaging Interventions when appropriate. Th is patient will be placed in the appropriate reminder system. TECHNICAL DOCUMENTATION: FINDING NUMBER: (1) ASSESSMENT: (1) JOB ID: [id number] [employer]- All Rights Reserved Reading location - IP/workstation name: [email or web address]
== END ==
LOC: WI 14:20
PROVIDERS: ATTEND Family Medicine
DX: Z12.31 Encounter for screening mammogram for malignant neoplasm of breast (principal)
CPT/HCPCS: 77067

== ENCOUNTER 2020-05-19 14:55 | Emergency (ER) | payer MEDICAID ==
[2020-05-19] MEDS ORDERED: DIPH/PERTUSS(ACELL)/TETANUS VAC/PF 0.5 ML SYR (>=10YO) IM ONE (14:56)
[2020-05-19] MEDS ORDERED: HYDROCODONE/ACETAMINOPHEN 5-325 MG TABLET PO ONE (14:57)
--- NOTE | 2020-05-19 14:58 | ER Document Report ---
ED Medical Screen (RME) - General Chief Complaint: Laceration Stated Complaint: LACERATION Time Seen by Provider: 05/19/20 14:56 Primary Care Provider: KAILA RODRIGUEZ DO [Primary Care Provider] - Follow up as needed Notes: HPI: 64-year-old female presenting for multiple lacerations to the left wrist from a wet washer machine injury. Was pressure washing and the sprayer got away from her causing the water to strike the left wrist. Patient not up-to-date on tetanus vaccination. PHYSICAL EXAMINATION: 2 lacerations noted over the radial side of the left wrist. 1 approximately 2 cm 1 approximately 4 cm in length. I have greeted and performed a rapid initial assessment of this patient. A comprehensive ED assessment and evaluation of the patient, analysis of test results and completion of medical decision making process will be conducted by an additional ED providers. TRAVEL OUTSIDE OF THE [place] IN LAST 30 DAYS: No - Related Data Allergies/Adverse Reactions: lisinopril [Lisinopril] Allergy (Intermediate, Verified 11/15/16 11:12) rash, hives Past Medical History - Past Medical History Cardiac Medical History: Reports: Hx Hypercholesterolemia, Hx Hypertension - MEDICATED Denies: Hx Coronary Artery Disease, Hx Heart Attack Pulmonary Medical History: Reports: Hx COPD Denies: Hx Asthma, Hx Bronchitis, Hx Pneumonia Neurological Medical History: Denies: Hx Cerebrovascular Accident, Hx Seizures Renal/ Medical History: Denies: Hx Peritoneal Dialysis GI Medical History: Denies: Hx Hepatitis, Hx Hiatal Hernia, Hx Ulcer Musculoskeltal Medical History: Reports Hx Arthritis Psychiatric Medical History: Reports: Hx Depression Traumatic Medical History: Reports: Hx Fractures Infectious Medical History: Denies: Hx Hepatitis Past Surgical History: Reports: Hx Section - x1, Hx Orthopedic Surgery - L hip replacement. Denies: Hx Hysterectomy, Hx Mastectomy, Hx Open Heart Surgery, Hx Pacemaker - Immunizations Hx Diphtheria, Pertussis, Tetanus Vaccination: No Doctor's Discharge - Discharge Referrals: KAILA RODRIGUEZ DO [Primary Care Provider] - Follow up as needed
--- NOTE | 2020-05-19 15:16 | ER Document Report ---
ED General - General Chief Complaint: Laceration Stated Complaint: LACERATION Time Seen by Provider: 05/19/20 14:56 Primary Care Provider: KAILA RODRIGUEZ DO [Primary Care Provider] - Follow up as needed (7-10 days for suture removal ) TRAVEL OUTSIDE OF THE [place] IN LAST 30 DAYS: No - HPI Notes: 64-year-old female presents to emergency room today for 2 lacerations on her left forearms after pressure washing accident approximately 1 hour ago, has a 4 cm linear laceration and a 1 cm linear laceration just proximal to left wrist. Patient's tetanus was updated in triage today. Denies any other area of injury. Denies any fevers or chills. Patient does take a full dose baby aspirin daily. Has not tried any [id number] medications, bleeding is controlled. Denies any fevers chills, numbness or tingling bilateral hands, chest pain, shortness of breath, and nausea vomiting or diarrhea. MEDICATIONS: I agree with the patient medications as charted by the RN. ALLERGIES: I agree with the allergies as charted by the RN. PAST MEDICAL HISTORY/PAST SURGICAL HISTORY: Reviewed and agree as charted by RN. SOCIAL HISTORY: Reviewed and agree as charted by RN. FAMILY HISTORY: No significant familial comorbid conditions directly related to patient complaint EXAM: Reviewed vital signs as charted by RN. REVIEW OF SYSTEMS:reviewed vital signs by RN CONSTITUTIONAL : Denies fever, chills, or sweats. Denies recent illness. EENT: Denies eye, ear, throat, or mouth pain or symptoms. Denies nasal or sinus congestion or discharge. Denies throat, tongue, or mouth swelling or difficulty swallowing. CARDIOVASCULAR: Denies chest pain. Denies palpitations or racing or irregular heart beat. Denies ankle edema. RESPIRATORY: Denies cough, cold, or chest congestion. Denies shortness of breath, difficulty breathing, or wheezing. GASTROINTESTINAL: Denies abdominal pain or distention. Denies nausea, vomiting, or diarrhea. Denies blood in vomitus, stools, or per rectum. Denies black, tarry stools. Denies constipation. GENITOURINARY: Denies difficulty urinating, painful urination, burning, frequency, blood in urine, or discharge. FEMALE GENITOURINARY: Denies vaginal bleeding, heavy or abnormal periods, irregular periods. Denies vaginal discharge or odor. MUSCULOSKELETAL: Denies back or neck pain or stiffness. Denies joint pain or swelling. SKIN: lacerations to left forearm. Denies rash, lesions or sores. HEMATOLOGIC : Denies easy bruising or bleeding. LYMPHATIC: Denies swollen, enlarged glands. NEUROLOGICAL: Denies confusion or altered mental status. Denies passing out or loss of consciousness. Denies dizziness or lightheadedness. Denies headache. Denies weakness or paralysis or loss of use of either side. Denies problems wit h gait or speech. Denies sensory loss, numbness, or tingling. Denies seizures. PSYCHIATRIC: Denies anxiety or stress. Denies depression, suicidal ideation, or homicidal ideation. ALL OTHER SYSTEMS REVIEWED AND NEGATIVE. PHYSICAL EXAMINATION: GENERAL: Well-appearing, well-nourished and in no acute distress. HEAD: Atraumatic, normocephalic. EYES: Pupils equal round and reactive to light, extraocular movements intact, conjunctiva are normal. ENT: Nares patent, oropharynx clear without exudates. Moist mucous membranes. NECK: Normal range of motion, supple without lymphadenopathy LUNGS: Breath sounds clear to auscultation bilaterally and equal. No wheezes rales or rhonchi. HEART: Regular rate and rhythm without murmurs ABDOMEN: Soft, nontender, nondistended abdomen. No guarding, no rebound. No masses appreciated. Female : deferred Musculoskeletal: Normal range of motion, no pitting or edema. No cyanosis. NEUROLOGICAL: Cranial nerves grossly intact. Normal speech, normal gait. Normal sensory, motor exams PSYCH: Normal mood, normal affect. SKIN: Warm, Dry, normal turgor, no rashes or lesions noted. 4cm linear laceration and 1cm linear laceration to left forearm. Radial pulses +2 bilaterally and equally. Personnel Placement Specialist +2 bilaterally and equally. No other area of injury. No foreign body seen on exploration of wound. Dictation was performed using [employer] voice recognition software - Related Data Allergies/Adverse Reactions: lisinopril [Lisinopril] Allergy (Intermediate, Verified 05/19/20 14:57) rash, hives Past Medical History - General Information source: Patient - Social History Smoking Status: Current Every Day Smoker Family History: None, Reviewed & Not Pertinent - Past Medical History Cardiac Medical History: Reports: Hx Hypercholesterolemia, Hx Hypertension - MEDICATED Denies: Hx Coronary Artery Disease, Hx Heart Attack Pulmonary Medical History: Reports: Hx COPD Denies: Hx Asthma, Hx Bronchitis, Hx Pneumonia Neurological Medical History: Denies: Hx Cerebrovascular Accident, Hx Seizures Renal/ Medical History: Denies: Hx Peritoneal Dialysis GI Medical History: Denies: Hx Hepatitis, Hx Hiatal Hernia, Hx Ulcer Musculoskeletal Medical History: Reports Hx Arthritis Psychiatric Medical History: Reports: Hx Depression Traumatic Medical History: Reports: Hx Fractures Infectious Medical History: Denies: Hx Hepatitis Past Surgical History: Reports: Hx Section - x1, Hx Orthopedic Surgery - L hip replacement. Denies: Hx Hysterectomy, Hx Mastectomy, Hx Open Heart Surgery, Hx Pacemaker - Immunizations Hx Diphtheria, Pertussis, Tetanus Vaccination: No Hx Pneumococcal Vaccination: 08/10/14 Physical Exam - Vital signs Vitals: Temp Pulse Resp BP Pulse Ox 98.1 F 102 H 20 153/87 H 97 05/19/20 15:03 05/19/20 15:03 05/19/20 15:03 05/19/20 15:03 05/19/20 15:03 Course - Re-evaluation Re-evalutation: 05/19/20 17:07 Afebrile vital stable no distress. Nurses notes reviewed. Please see procedure note for laceration repair. Discussed with patient that she does need to follow-up with her primary care provider within the next 7 to 10 days for suture removal. Will place patient on prophylactic antibiotic therapy, tetanus was updated today. Patient verbalized understanding of this plan of care and agree with plan of care. After performing a Medical Screening Examination, I estimate there is LOW risk for OPEN FRACTURE, COMPARTMENT SYNDROME, TENDON RUPTURE, ACUTE NEUROVASCULAR INJURY, or RETAINED FOREIGN BODY, thus I consider the discharge disposition reasonable. Also, there is no evidence or peritonitis, sepsis, or toxicity. I have reevaluated this patient multiple times and no significant life threatening changes are noted. The patient and I have discussed the diagnosis and risks, and we agree with discharging home with close follow- up with the understanding that symptoms and presentations can change. We also discussed returning to the Emergency Department immediately if new or worsening symptoms occur. We have discussed the symptoms which are most concerning (e.g., changing or worsening pain, fever, numbness, weakness, cool or painful digits) that necessitate immediate return. - Vital Signs Vital signs: Temp Pulse Resp BP Pulse Ox 98.7 F 77 16 133/74 H 95 10/10/20 17:03 05/19/20 17:03 05/19/20 17:03 05/19/20 17:03 05/19/20 17:03 Procedures - Laceration/Wound Repair Left Wrist Time completed: 16:39 Wound length (cm): 4 - cm, #2: 1cm Wound's Depth, Shape: Linear Laceration pre-procedure: Sterile PPE donned, Betadine prep applied, Shur-Clens applied Anesthetic type: 1% Lidocaine w/epi Volume Anesthetic (mLs): 4 - mL Wound explored: Clean, No foreign body removed - no foreign body seen on exploration of wound Wound Debrided: Minimal Wound Repaired With: Sutures - #2 Suture Size/Type: Vicryl - #2 simple sutures, 4:0, Prolene - #5 Mattress sutures, #2 simple sutures Layer Closure?: No Notes: 05/19/20 16:48 Verbal consent given by patient to do suture repair. High-pressure irrigation with 100 mL's normal saline per centimeter, no foreign body seen on exploration of wound. Patient anesthetized with 1% lidocaine with epi. 4 cm later laceration with #2, 4-0 Vicryl mattress sutures, wound edges well approximated, 5 mattress sutures placed. 1cm linear laceration with #2 simple suture 4.0 prolene. Patient tolerated procedure without incident Discharge - Discharge Clinical Impression: Laceration of forearm Condition: Stable Disposition: HOME, SELF-CARE Instructions: Antibiotic Ointment Protection ([facility]), Laceration Care ([facility]), Prophylactic Antibiotic ([facility]), Tetanus Immunization Given ([facility]) Additional Instructions: Laceration Care Your laceration has been sutured to keep the skin edges aligned during healing. The time of suture removal depends on the nature and location of your cut. Please follow the care instructions the doctor has outlined for you and return for further care, according to the schedule you've been given. Keep the wound and dressing clean. Unless you were told otherwise, you may shower daily, blotting the wound dry with a clean, unused towel. At other times, If the dressing gets wet or blood soaked, remove it and blot the wound dry, then reapply a new dressing. Unless you were instructed otherwise, dressings should be changed at least daily. If any signs of infection occur (swelling, redness, increasing tenderness, red streaks, tender lumps in the armpit or groin above the laceration, or fever), see the doctor immediately. Please return to your primary doctor, the ED, or an urgent care in 7-10 days for suture removal. Return immediately if you develop spreading redness around the wound, pus from the wound, worsening pain, or a fever of >100.4. Keep the area clean and dry. Wash gently with soap and water twice daily and cover with antibiotic ointment. Return immediately for any new or worsening symptoms. Follow up with primary care provider, call tomorrow to make followup appointment. Prescriptions: Cephalexin Monohydrate [Keflex 500 mg Capsule] 500 mg PO BID #10 capsule Referrals: KAILA RODRIGUEZ DO [Primary Care Provider] - Follow up as needed (7-10 days for suture removal )
--- NOTE | 2020-05-19 15:23 | RADIOLOGY REPORT (SQ) ---
EXAM DESCRIPTION: WRIST LEFT 3 VIEWS IMAGES COMPLETED DATE/TIME: 05/19/2020 3:12 pm REASON FOR STUDY: brush washer injury COMPARISON: None. EXAM PARAMETERS: NUMBER OF VIEWS: Three views. TECHNIQUE: AP, lateral and oblique radiographic images acquired of the left wrist. LIMITATIONS: None. FINDINGS: MINERALIZATION: Normal. BONES: No acute fracture or dislocation. Distal radius hardware appears intact. . JOINTS: No effusion. SOFT TISSUES: Radial soft tissue swelling -laceration. No radiopaque foreign body. OTHER: No other significant finding. IMPRESSION: NO FRACTURE.Radial soft tissue swelling -laceration. No radiopaque foreign body. TECHNICAL DOCUMENTATION: JOB ID: [id number] [place]-72 2010 [employer] All Rights Reserved Reading location - IP/workstation name: [email or web address]
[2020-05-19] MEDS ORDERED: LIDOCAINE 2%/EPINEPHRINE INJ 20 ML VIAL ONE (16:11)
[2020-05-19 17:06] VITALS: BP 133/74
== END 2020-05-19 17:06 | disposition home or self-care (01) ==
LOC: ER 14:55
DX: S51.812A Laceration without foreign body of left forearm, initial encounter (principal); W29.8XXA Contact with other powered hand tools and household machinery, initial encounter; Z23 Encounter for immunization; F17.200 Nicotine dependence, unspecified, uncomplicated; E78.00 Pure hypercholesterolemia, unspecified; I10 Essential (primary) hypertension; J44.9 Chronic obstructive pulmonary disease, unspecified; Z79.82 Long term (current) use of aspirin
CPT/HCPCS: 99283; 90471; 73110; 90715; 12002; J3490